=== PATIENT | male | born 1985 | race African-American/Black ===

== ENCOUNTER 2016-11-03 09:55 | Emergency (ER) | payer OTHER ==
[~2016-11-03] VITALS: Ht 188 cm; Wt 107.3 kg
[2016-11-03 10:02] VITALS: Ht 188 cm; Wt 107.3 kg
--- NOTE | 2016-11-03 10:50 | DIAGNOSTIC IMAGING REPORT ---
LEFT ANKLE MIN 3 VIEWS ROUTINE CLINICAL HISTORY: Left ankle pain following injury. COMPARISON: None FINDINGS: Alignment of the left ankle is anatomic. There is no acute fracture. Talar dome is intact. There is moderate lateral ankle soft tissue swelling. IMPRESSION: 1. No acute fracture or dislocation of the left ankle. 2. Moderate lateral ankle soft tissue swelling. Electronically signed by: Redd Navarrete M.D. 11/03/2016 10:48 AM Dictated Date/Time: 11/03/2016 10:48 AM
[2016-11-03] MEDS ORDERED: IBUPROFEN 600 MG TAB ONE (10:53)
--- NOTE | 2016-11-03 10:59 | DIAGNOSTIC IMAGING REPORT ---
LEFT FOOT 3 VIEWS CLINICAL HISTORY: Left foot injury. FINDINGS: 3 views of the left foot are obtained. No prior studies are available for comparison at the time of dictation. The skeletal structures are well mineralized. No fracture is seen. A high arch is incidentally noted. There is degenerative spurring along the dorsal aspect of the tarsal bones. The joint spaces of the foot are well-maintained. There is no radiographic evidence of Lisfranc injury. Soft tissue edema is present around the ankle and along the dorsal aspect of the foot. IMPRESSION: There is no radiographic evidence of left foot fracture. Electronically signed by: Dave Monique M.D. 11/03/2016 10:58 AM Dictated Date/Time: 11/03/2016 10:57 AM
[2016-11-03 12:07] VITALS: BP 118/78; PULSE 62; TEMP 37; O2SAT 96
--- NOTE | 2016-11-04 06:40 | EMERGENCY ROOM VISIT NOTE ---
ED Visit Note First contact with patient: 10:10 CHIEF COMPLAINT: Left ankle and great toe pain. HISTORY OF PRESENT ILLNESS: Mr. Avery is a 31-year old black male who ambulates into the ED complaining of left medial and lateral ankle pain and left great toe pain at the MCP joint area. Patient reports that he has been having ongoing left great toe pain for the last few weeks. He does not remember any precipitating trauma. He describes the pain as a sharp sensation during the pushoff days of ambulation and when he extends the MCP joint. At rest he is pain-free. He has not taken any medications for his pain prior to arrival at the hospital. He denies any other associated foot pain great toe weakness/numbness/tingling and he denies any previous significant injuries to the great toe. He reports approximately 12 hours ago he was playing basketball and when he jumped up he came down and landed on another persons foot and sustained an inversion injury to the ankle. He reports since that time he has had pain over the medial and lateral malleolus. He describes this as a deep achy sensation. He rates his discomfort 6/10. His pain is nonradiating. His pain worsens with palpation, dorsiflexion and inversion. He has not identified any alleviating factors related to the pain. He has not taken any medication for pain prior to arrival at the hospital. Associated with his pain he has noted swelling over the lateral aspect of the ankle. He denies any associated hip pain, knee pain, lower leg pain, leg weakness/numbness/tingling. Historically he reports last year he had a fracture of the ankle but does not remember which portion of the ankle was broken, but did not require surgery and has had no complications since his injury yesterday. REVIEW OF SYSTEMS: As noted above in History of Present Illness. PAST MEDICAL HISTORY: As noted above. CURRENT MEDICATIONS: Patient denies. ALLERGIES TO MEDICATIONS: Patient denies. SOCIAL HISTORY: Patient is currently employed; he feels safe in his home environment; he denies tobacco use and admits to alcohol use. PHYSICAL EXAM: Vital Signs: Date Time Temp Pulse Resp B/P Pulse Ox O2 Delivery O2 Flow Rate FiO2 11/03/16 12:07 37.0 62 16 118/78 96 11/03/16 11:16 62 118/78 11/03/16 10:02 37.0 73 16 141/84 96 Room Air General: 31 year old male in mild distress due to pain, nontoxic-appearing, afebrile and hemodynamically stable. Neurological: Awake, alert, oriented to person place and time. Answering questions appropriately and following commands. Skin: Warm dry and pink. No soft tissue injuries. Left Lower Extremity: No gross cornelius deformities. No tenderness in the hip or knee. Tenderness over the anterior and inferior ligaments around the medial malleolus and anterior, inferior and posterior ligamentous structures around the lateral malleolus. There is a moderate amount of swelling over the lateral malleolus but not the medial malleolus. There is no ecchymosis or bony crepitus /deformity in either areas. On ligamentous testing no appreciable laxity was noted. He did have full range of motion in plantar flexion, dorsiflexion, inversion and eversion. No tenderness throughout the foot. He did have discomfort and extension of the first MCP joint but not over the extensor tendon. I do not appreciate any swelling, bony deformity or crepitus throughout the great toe and there is no ligamentous laxity. Throughout the foot the skin is pink and warm with brisk capillary refill. Able to distinguish light sensations through all dermatomes of the foot. ED COURSE: Patient is assessed as noted above. Left Ankle X-Rays: Was read by myself and the radiologist showing no acute fracture dislocations. Moderate lateral ankle swelling. Left Foot X-Rays: Was read by myself and the radiologist and shows no acute fractures or dislocations. Patient is given 600 mg of ibuprofen and ice for pain, swelling and comfort. Patient is placed in a walking boot and is instructed on crutch use. Patient is educated about his condition and instructed on his treatment plan; he verbalizes understanding and agreement with the our plan. CLINICAL IMPRESSION: Left ankle sprain. Left great toe pain. DISPOSITION: Patient is discharged to home in stable condition; prior to departure he was reassessed and subjectively reported he was feeling better and rated his discomfort 4/10. PLAN: Comfort measures were discussed with the patient. Patient was encouraged to follow-up with an orthopedic physician if no better in 7 to 10 days. Patient was encouraged to return ED as needed for increasing pain, worsening swelling, foot weakness/numbness/tingling or any new/concerning symptoms.
== END 2016-11-03 12:08 | disposition home or self-care (01) ==
LOC: C.EDB 09:56 → C.EDA 12:08
DX: S93.402A Sprain of unspecified ligament of left ankle, initial encounter (principal); M79.675 Pain in left toe(s); X50.1XXA Overexertion from prolonged static or awkward postures, initial encounter; Y92.310 Basketball court as the place of occurrence of the external cause; Y93.67 Activity, basketball

== ENCOUNTER → 2017-06-21 | Outpatient (CLI) | payer OTHER ==
[2017-06-23 01:23] LABS: CHLAMYDIA TRACH RNA*** DETECTED (NOT DETECTED); GC (NEIS GONORRHOEAE)RNA** NOT DETECTED (NOT DETECTED)
== END | disposition home or self-care (01) ==
LOC: C.LABBC 08:29
PROVIDERS: ATTEND Nurse Practitioner Adult Health
DX: Z00.00 Encounter for general adult medical examination without abnormal findings (principal)